=== PATIENT | female | born 1945 | race Caucasian/White ===

== ENCOUNTER 2017-01-26 17:33 | Observation (INO) | payer MEDICARE ==
[~2017-01-26] VITALS: Ht 162.6 cm; Wt 84.8 kg
[2017-01-26] MEDS ORDERED: SODIUM CHLORIDE 0.9% 1,000ML IVBOLUS ONE (18:00)
[2017-01-26] MEDS ORDERED: L.E.T SOLUTION TP ONE ×2 (18:00→18:09)
[2017-01-26] MEDS ORDERED: SODIUM CHLORIDE FLUSH 10ML SYR IVF ONE (18:00)
[2017-01-26 18:31] LABS: BLOOD UREA NITROGEN 23 mg/dL (7-18)
[2017-01-26 18:37] LABS: IS PT STATUS REG ER OR PRE ER? YES
[2017-01-26] MEDS ORDERED: ACETAMINOPHEN 325 MG TABLET ONE (19:00)
[2017-01-26] MEDS ORDERED: ACETAMINOPHEN 325 MG TABLET PO ONE (19:00)
[2017-01-26] MEDS ORDERED: DULO60CA7 PO (21:12)
[2017-01-26] MEDS ORDERED: ATOR80TA75 PO (21:12)
[2017-01-26] MEDS ORDERED: UNK HTN MED (21:12)
[2017-01-26] MEDS ORDERED: BUDE3CAP15 PO (21:12)
[2017-01-26] MEDS ORDERED: BUSP10TA PO (21:12)
[2017-01-27] MEDS ORDERED: TEMAZEPAM 15 MG CAPSULE PO PRN (00:30)
[2017-01-27] MEDS ORDERED: ATORVASTATIN 40 MG TABLET PO SCH (00:30)
[2017-01-27] MEDS: HEPARIN 5,000 UNITS/ML, 1ML SQ SCH ×2 (00:30→10:24)
[2017-01-27] MEDS ORDERED: ACETAMINOPHEN 325 MG TABLET PO PRN (00:30)
[2017-01-27] MEDS ORDERED: HYDROcodone/APAP 5/325 TABLET PO PRN (00:30)
[2017-01-27] MEDS ORDERED: HEPARIN 5,000 UNITS/ML, 1ML ONE (00:40)
[2017-01-27] MEDS: SODIUM CHLORIDE 0.9% 1,000 ML IV SCH ×2 (00:47→10:48)
[2017-01-27 01:17] LABS: IS PT STATUS REG ER OR PRE ER? YES
[2017-01-27 02:36] VITALS: BP 138/76
[2017-01-27] MEDS ORDERED: ACETAMINOPHEN 325 MG TABLET ONE (03:00)
[2017-01-27] MEDS ORDERED: BUSPIRONE 10 MG TABLET PO SCH (09:00)
[2017-01-27] MEDS ORDERED: DULOXETINE 30 MG CAPSULE.DR PO SCH (09:00)
[2017-01-27] MEDS ORDERED: BUDESONIDE PO SCH (09:00)
[2017-01-27 10:05] LABS: IS PT STATUS REG ER OR PRE ER? NO
[2017-01-27 11:27] LABS: BLOOD UREA NITROGEN 17 mg/dL (7-18)
[2017-01-27 11:31] LABS: ASPARTATE AMINO TRANSFERASE 14 U/L (15-37)
== END 2017-01-27 16:00 | disposition home or self-care (01) ==
LOC: ED 21:18 → EDIP 22:01 → INTOOBSV 22:01 → CCU 01-27 05:28 → DCLOUNGE 01-27 13:55
PROVIDERS: ADMIT Internal Medicine; ATTEND Internal Medicine
DX: G90.8 Other disorders of autonomic nervous system (principal); S01.01XA Laceration without foreign body of scalp, initial encounter; E86.0 Dehydration; I12.9 Hypertensive chronic kidney disease with stage 1 through stage 4 chronic kidney disease, or unspecified chronic kidney disease; N18.9 Chronic kidney disease, unspecified; N17.0 Acute kidney failure with tubular necrosis; K52.839 Microscopic colitis, unspecified; N25.89 Other disorders resulting from impaired renal tubular function; E87.6 Hypokalemia; E78.5 Hyperlipidemia, unspecified; F41.9 Anxiety disorder, unspecified; F32.9 Major depressive disorder, single episode, unspecified; E66.9 Obesity, unspecified; I10 Essential (primary) hypertension; D72.829 Elevated white blood cell count, unspecified; Z80.0 Family history of malignant neoplasm of digestive organs; Z82.5 Family history of asthma and other chronic lower respiratory diseases; Z87.891 Personal history of nicotine dependence; Z96.653 Presence of artificial knee joint, bilateral; W18.30XA Fall on same level, unspecified, initial encounter; Y93.89 Activity, other specified; Y92.89 Other specified places as the place of occurrence of the external cause; Y99.8 Other external cause status
CPT/HCPCS: 12001; 36415; 70450; 73564; 80048; 80053; 82040; 83036; 83735; 84439; 84443; 84484; 85025; 87081; 93005; 93306; 93880; 96360; 96361; 96372; 97162; 99285; G0378; J1644; J7030

== ENCOUNTER 2017-10-27 10:18 | Emergency (ER) | payer MEDICARE ==
[~2017-10-27] VITALS: Ht 160 cm; Wt 82.9 kg
[~2017-10-27 10:18] MED LIST: ATOR-2 PO; BUDE3CAP15 PO; BUSP10TA PO; DULO60CA7 PO; UNK HTN MED
[2017-10-27 10:24] VITALS: BP 144/88
[2017-10-27] MEDS ORDERED: LOSA25TA5 PO (11:00)
== END 2017-10-27 13:04 | disposition home or self-care (01) ==
LOC: ED 12:50
DX: L03.113 Cellulitis of right upper limb (principal); S60.811A Abrasion of right wrist, initial encounter; L03.90 Cellulitis, unspecified; I10 Essential (primary) hypertension; M25.562 Pain in left knee; D17.79 Benign lipomatous neoplasm of other sites; Z96.653 Presence of artificial knee joint, bilateral; X58.XXXA Exposure to other specified factors, initial encounter; Y93.89 Activity, other specified; Y99.8 Other external cause status; Y92.89 Other specified places as the place of occurrence of the external cause
CPT/HCPCS: 99284

== ENCOUNTER 2018-03-27 07:43 | Inpatient (IN) | payer MEDICARE ==
[~2018-03-27] VITALS: Ht 160 cm; Wt 78.2 kg
[~2018-03-27 07:43] MED LIST changes: +LOSA25TA5 PO
[2018-03-27] MEDS ORDERED: ALBUTEROL/IPRATROPIUM 2.5MG/0.5MG, 3 ML ONE (08:19)
[2018-03-27] MEDS ORDERED: ALBUTEROL SULFATE 2.5 MG/3 ML NPPB ONE (08:30)
[2018-03-27 08:46] LABS: BASOPHILS # (AUTO) 0.13 x10^3/uL (0-0.1); BASOPHILS % (AUTO) 1 % (0-1); EOSINOPHILS # (AUTO) 0.17 x10^3/uL (0-0.4); EOSINOPHILS % (AUTO) 2 % (1-7); LYMPHOCYTES # (AUTO) 1.83 x10^3/uL (1-3.4); LYMPHOCYTES % (AUTO) 17 % (22-44); MD NO; MEAN CORPUSCULAR HEMOGLOBIN 30.9 pg (27.0-34.8); MEAN CORPUSCULAR HGB CONC 34.3 g/dL (32.4-35.8); MEAN CORPUSCULAR VOLUME 90.2 fL (80-100); MEAN PLATELET VOLUME 7.4 fL (7.4-10.4); MONOCYTES # (AUTO) 0.71 x10^3/uL (0.2-0.8); MONOCYTES % (AUTO) 7 % (2-9); NEUTROPHILS # (AUTO) 8.07 x10^3/uL (1.8-6.8); NEUTROPHILS % (AUTO) 74 % (42-75); PLATELET COUNT 314 x10^3/uL (130-400); RED BLOOD COUNT 4.95 x10^6/uL (3.82-5.3); RED CELL DISTRIBUTION WIDTH 13.7 % (9.6-15.2)
[2018-03-27 08:55] LABS: ALBUMIN 2.5 g/dL (3.4-5.0); ANION GAP 12 mmol/L (5-15); CALCIUM 8.9 mg/dL (8.5-10.1); CHLORIDE 104 mmol/L (98-107); CREATININE 0.94 mg/dL (0.55-1.02)
[2018-03-27 08:58] LABS: TROPONIN I < 0.015 ng/mL (0.000-0.045)
[2018-03-27] MEDS ORDERED: DIAZ5TAB4 PO (09:36)
[2018-03-27] MEDS ORDERED: BUDE9TAB PO (09:36)
[2018-03-27] MEDS ORDERED: LOSA1TAB25 PO (09:36)
[2018-03-27] MEDS ORDERED: BUSP10TA PO (09:36)
[2018-03-27] MEDS ORDERED: OMNIPAQUE 350 MG/ML, 100ML BOTTLE ONE (10:20)
[2018-03-27] MEDS ORDERED: AZITHROMYCIN 500 MG in SODIUM CHLORIDE 0.9% 250 ML IV ONE (11:00)
[2018-03-27] MEDS ORDERED: CEFTRIAXONE 1,000 MG in SODIUM CHLORIDE 0.9% 50 ML IV ONE (11:00)
[2018-03-27] MEDS ORDERED: CEFTRIAXONE PMX 1GM/50ML 50 ML ONE (11:06)
[2018-03-27] MEDS ORDERED: SODIUM CHLORIDE FLUSH 10ML SYR IVF PRN (11:30)
[2018-03-27] MEDS ORDERED: DOCUSATE 100 MG CAPSULE PO PRN (12:30)
[2018-03-27] MEDS ORDERED: POLYETHYLENE GLYCOL 17 GM PACKET PO PRN (12:30)
[2018-03-27] MEDS ORDERED: hydrALAzine 20 MG/ML, 1ML IVPush PRN (12:30)
[2018-03-27] MEDS: HEPARIN 5,000 UNITS/ML, 1ML SQ SCH ×2 (12:30→19:39)
[2018-03-27] MEDS ORDERED: CEFTRIAXONE 1,000 MG in SODIUM CHLORIDE 0.9% 50 ML IV SCH (12:30)
[2018-03-27] MEDS ORDERED: BISACODYL 10 MG SUPP PR PRN (12:30)
[2018-03-27] MEDS: ALBUTEROL SULFATE 2.5 MG/3 ML NPPB SCH ×3 (12:40→20:00)
[2018-03-27 12:50] LABS: FREE T4 (FREE THYROXINE) 1.6 ng/dL (0.76-1.46); THYROID STIMULATING HORMONE 1.22 mIU/L (0.358-3.740)
[2018-03-27] MEDS: SODIUM CHLORIDE 0.9% 1,000 ML IV SCH (13:34)
[2018-03-27 13:35] VITALS: BP 190/88
[2018-03-27 14:13] VITALS: BP 138/91
[2018-03-27] MEDS ORDERED: POTASSIUM CHLORIDE 20 MEQ TAB.ER.PRT PO ONE (14:30)
[2018-03-27] MEDS: DOXYCYCLINE 100 MG in DEXTROSE 5% 250 ML IV SCH (14:43)
[2018-03-27] MEDS: DIAZEPAM 5 MG TABLET PO PRN (14:48)
[2018-03-27] MEDS: GUAIFENESIN/DM 200-20MG, 10ML UDC PO PRN ×2 (14:48→21:50)
[2018-03-27 15:50] VITALS: BP 154/80
[2018-03-27 18:57] VITALS: BP 144/80
[2018-03-27] MEDS: BUSPIRONE 10 MG TABLET PO SCH (19:38)
[2018-03-27] MEDS: ATORVASTATIN 40 MG TABLET PO SCH (19:38)
[2018-03-27] MEDS: ACETAMINOPHEN 325 MG TABLET PO PRN (19:38)
[2018-03-28] MEDS: DOXYCYCLINE 100 MG in DEXTROSE 5% 250 ML IV SCH ×2 (00:32→12:51)
[2018-03-28 02:02] VITALS: BP 146/82
[2018-03-28] MEDS: ACETAMINOPHEN 325 MG TABLET PO PRN ×3 (04:41→21:17)
[2018-03-28] MEDS: HEPARIN 5,000 UNITS/ML, 1ML SQ SCH ×3 (04:41→21:18)
[2018-03-28] MEDS: SODIUM CHLORIDE 0.9% 1,000 ML IV SCH ×2 (04:41→17:10)
[2018-03-28] MEDS: GUAIFENESIN/DM 200-20MG, 10ML UDC PO PRN ×2 (04:46→13:07)
[2018-03-28 05:41] LABS: BASOPHILS # (AUTO) 0.07 x10^3/uL (0-0.1); BASOPHILS % (AUTO) 1 % (0-1); EOSINOPHILS # (AUTO) 0.21 x10^3/uL (0-0.4); EOSINOPHILS % (AUTO) 3 % (1-7); LYMPHOCYTES # (AUTO) 2.07 x10^3/uL (1-3.4); LYMPHOCYTES % (AUTO) 29 % (22-44); MD NO; MEAN CORPUSCULAR HEMOGLOBIN 31.1 pg (27.0-34.8); MEAN CORPUSCULAR HGB CONC 33.8 g/dL (32.4-35.8); MEAN CORPUSCULAR VOLUME 91.8 fL (80-100); MEAN PLATELET VOLUME 7.4 fL (7.4-10.4); MONOCYTES # (AUTO) 0.71 x10^3/uL (0.2-0.8); MONOCYTES % (AUTO) 10 % (2-9); NEUTROPHILS # (AUTO) 4.12 x10^3/uL (1.8-6.8); NEUTROPHILS % (AUTO) 57 % (42-75); PLATELET COUNT 306 x10^3/uL (130-400); RED BLOOD COUNT 4.36 x10^6/uL (3.82-5.3); RED CELL DISTRIBUTION WIDTH 14.5 % (9.6-15.2)
[2018-03-28 05:45] LABS: ALBUMIN 2.1 g/dL (3.4-5.0); ANION GAP 6 mmol/L (5-15); CALCIUM 8.4 mg/dL (8.5-10.1); CHLORIDE 109 mmol/L (98-107)
[2018-03-28 05:50] LABS: ALANINE AMINOTRANSFERASE 32 U/L (12-78); ALKALINE PHOSPHATASE 84 U/L (45-117); BILIRUBIN,TOTAL 0.7 mg/dL (0.2-1.0); CREATININE 0.72 mg/dL (0.55-1.02); TOTAL PROTEIN 5.9 g/dL (6.4-8.2)
[2018-03-28] MEDS: ALBUTEROL SULFATE 2.5 MG/3 ML NPPB SCH ×4 (06:53→19:05)
[2018-03-28 07:17] VITALS: BP 141/87
[2018-03-28] MEDS: BUSPIRONE 10 MG TABLET PO SCH ×2 (08:51→21:17)
[2018-03-28] MEDS: BUDESONIDE 3 MG CAP DR.ER PO SCH (08:51)
[2018-03-28] MEDS: DULOXETINE 30 MG CAPSULE.DR PO SCH (08:51)
[2018-03-28] MEDS: LOSARTAN 50MG TABLET PO SCH (08:52)
[2018-03-28] MEDS: CEFTRIAXONE 1,000 MG in SODIUM CHLORIDE 0.9% 50 ML IV SCH (11:55)
[2018-03-28 13:16] VITALS: BP 127/66
[2018-03-28 18:43] VITALS: BP 135/75
[2018-03-28] MEDS: ATORVASTATIN 40 MG TABLET PO SCH (21:17)
[2018-03-29] MEDS: DOXYCYCLINE 100 MG in DEXTROSE 5% 250 ML IV SCH ×2 (01:02→12:39)
[2018-03-29 01:06] VITALS: BP 134/77
[2018-03-29] MEDS: DIAZEPAM 5 MG TABLET PO PRN ×2 (01:06→21:13)
[2018-03-29] MEDS: SODIUM CHLORIDE 0.9% 1,000 ML IV SCH (05:13)
[2018-03-29] MEDS: HEPARIN 5,000 UNITS/ML, 1ML SQ SCH ×3 (05:14→20:30)
[2018-03-29] MEDS: GUAIFENESIN/DM 200-20MG, 10ML UDC PO PRN ×2 (05:41→21:13)
[2018-03-29 06:03] LABS: BASOPHILS # (AUTO) 0.05 x10^3/uL (0-0.1); BASOPHILS % (AUTO) 1 % (0-1); EOSINOPHILS # (AUTO) 0.03 x10^3/uL (0-0.4); EOSINOPHILS % (AUTO) 0 % (1-7); LYMPHOCYTES # (AUTO) 1.36 x10^3/uL (1-3.4); LYMPHOCYTES % (AUTO) 15 % (22-44); MD NO; MEAN CORPUSCULAR HEMOGLOBIN 30.9 pg (27.0-34.8); MEAN CORPUSCULAR HGB CONC 33.8 g/dL (32.4-35.8); MEAN CORPUSCULAR VOLUME 91.3 fL (80-100); MEAN PLATELET VOLUME 7.4 fL (7.4-10.4); MONOCYTES # (AUTO) 0.51 x10^3/uL (0.2-0.8); MONOCYTES % (AUTO) 6 % (2-9); NEUTROPHILS # (AUTO) 7.22 x10^3/uL (1.8-6.8); NEUTROPHILS % (AUTO) 79 % (42-75); PLATELET COUNT 313 x10^3/uL (130-400); RED BLOOD COUNT 4.14 x10^6/uL (3.82-5.3); RED CELL DISTRIBUTION WIDTH 14.6 % (9.6-15.2)
[2018-03-29 06:11] LABS: ANION GAP 10 mmol/L (5-15); CALCIUM 8.7 mg/dL (8.5-10.1); CHLORIDE 112 mmol/L (98-107); CREATININE 0.63 mg/dL (0.55-1.02)
[2018-03-29 06:12] LABS: ALBUMIN 2.1 g/dL (3.4-5.0)
[2018-03-29 06:45] VITALS: BP 156/88
[2018-03-29] MEDS: ALBUTEROL SULFATE 2.5 MG/3 ML NPPB SCH ×4 (06:50→21:10)
[2018-03-29] MEDS: DULOXETINE 30 MG CAPSULE.DR PO SCH (09:20)
[2018-03-29] MEDS: BUDESONIDE 3 MG CAP DR.ER PO SCH (09:21)
[2018-03-29] MEDS: LOSARTAN 50MG TABLET PO SCH (09:21)
[2018-03-29] MEDS: BUSPIRONE 10 MG TABLET PO SCH ×2 (09:21→21:13)
[2018-03-29] MEDS: CEFTRIAXONE 1,000 MG in SODIUM CHLORIDE 0.9% 50 ML IV SCH (11:43)
[2018-03-29 12:46] VITALS: BP 136/50
[2018-03-29 19:03] VITALS: BP 154/86
[2018-03-29] MEDS: ACETAMINOPHEN 325 MG TABLET PO PRN (21:13)
[2018-03-29] MEDS: ATORVASTATIN 40 MG TABLET PO SCH (21:13)
[2018-03-30] MEDS: DOXYCYCLINE 100 MG in DEXTROSE 5% 250 ML IV SCH ×2 (00:43→12:56)
[2018-03-30] MEDS: HEPARIN 5,000 UNITS/ML, 1ML SQ SCH ×2 (03:53→12:30)
[2018-03-30] MEDS: ALBUTEROL SULFATE 2.5 MG/3 ML NPPB SCH (06:45)
[2018-03-30] MEDS ORDERED: ALBUTEROL SULFATE 2.5 MG/3 ML NPPB PRN (07:00)
[2018-03-30 07:29] VITALS: BP 148/91
[2018-03-30] MEDS: DULOXETINE 30 MG CAPSULE.DR PO SCH (08:44)
[2018-03-30] MEDS: LOSARTAN 50MG TABLET PO SCH (08:44)
[2018-03-30] MEDS: ACETAMINOPHEN 325 MG TABLET PO PRN (08:45)
[2018-03-30] MEDS: BUSPIRONE 10 MG TABLET PO SCH (08:45)
[2018-03-30] MEDS: BUDESONIDE 3 MG CAP DR.ER PO SCH (08:45)
[2018-03-30] MEDS: CEFTRIAXONE 1,000 MG in SODIUM CHLORIDE 0.9% 50 ML IV SCH (11:19)
[2018-03-30] MEDS ORDERED: DOXY100T10 PO (13:11)
[2018-03-30] MEDS ORDERED: CEFD300C37 PO (13:11)
[2018-03-30 14:13] VITALS: BP 143/86
== END 2018-03-30 15:20 | disposition home or self-care (01) | DRG 193 ==
LOC: ED 08:49 → 3NE 11:58 → DCLOUNGE 03-30 15:05
PROVIDERS: ADMIT Hospitalist; ATTEND Hospitalist
DX: J15.9 Unspecified bacterial pneumonia (principal); J96.01 Acute respiratory failure with hypoxia; E78.5 Hyperlipidemia, unspecified; E87.6 Hypokalemia; F32.9 Major depressive disorder, single episode, unspecified; F41.9 Anxiety disorder, unspecified; I10 Essential (primary) hypertension; H40.9 Unspecified glaucoma; I16.0 Hypertensive urgency; K52.839 Microscopic colitis, unspecified; Z66 Do not resuscitate; Z80.0 Family history of malignant neoplasm of digestive organs; Z82.49 Family history of ischemic heart disease and other diseases of the circulatory system; Z87.01 Personal history of pneumonia (recurrent); Z87.891 Personal history of nicotine dependence; Z96.653 Presence of artificial knee joint, bilateral; R00.0 Tachycardia, unspecified
CPT/HCPCS: 36415; 71045; 71275; 80048; 80053; 82040; 83605; 83735; 83880; 84100; 84145; 84439; 84443; 84484; 85025; 85379; 87040; 93005; 94640; 96365; J0456; J0696; J1644; J7060; J7613; Q9967; J7030; J7050